=== PATIENT | male | born 1985 | race Caucasian/White ===

== ENCOUNTER 2021-12-05 13:47 | Emergency (ER) | payer OTHER ==
[2021-12-05] MEDS ORDERED: FAMOTIDINE 20 MG TAB PO STA (15:55)
[2021-12-05] MEDS ORDERED: hydrOXYzine HCL 25 MG TAB PO STA (15:55)
[2021-12-05] MEDS ORDERED: methylPREDNISolone SOD SUCCI 125 MG/2 ML VIAL IM ONE (15:55)
--- NOTE | 2021-12-05 16:01 | ED ---
Allergic Reaction HPI - General Chief complaint: Allergic Reaction Stated complaint: Allergic Reaction Time Seen by Provider: 12/05/21 15:43 Source: patient, RN notes reviewed Mode of arrival: ambulatory Limitations: no limitations - History of Present Illness Initial Comments: This is a 36-year-old male who presents to the emergency department with a rash. Patient states that he woke up with a rash all over his body. Describes this as being very itchy. This is similar to the rash he had in October. He was evaluated in the emergency department and treated with 5 days of prednisone and states that the rash improved when taking the prednisone, however he does not feel like it ever completely went away. He does note that he changes laundry detergents and bed sheets very frequently, and when he changes the bed sheets they do occasionally cause him to break out. Denies any chest pain or shortness of breath. Denies any new medications. Denies any fevers, chills, sore throat, cough, dyspnea, chest pain, palpitations, abdominal pain, nausea, vomiting, diarrhea, back pain, or headaches. MD Complaint: hives Exposure: unknown Symptoms: rash, itching Treatment Prior to Arrival: benadryl Previous Allergy History: prior ED visit(s) - Related Data Previous Rx's Medication Instructions Recorded predniSONE 50 mg PO DAILY #5 tab 10/09/21 Famotidine 40 mg PO DAILY #10 tab 12/05/21 hydrOXYzine HCL [Atarax] 25 mg PO QID PRN #20 tab 12/05/21 predniSONE 50 mg PO QAM #7 tablet 12/05/21 Allergies Allergy/AdvReac Type Severity Reaction Status Date / Time Penicillins Allergy Rash/Hives Verified 12/05/21 14:09 shellfish derived [Shrimp] Allergy Rash/Hives Verified 12/05/21 14:09 Review of Systems ROS Statement: Those systems with pertinent positive or pertinent negative responses have been documented in the HPI. ROS Other: All systems not noted in ROS Statement are negative. Past Medical History Past Medical History: Diabetes Mellitus, Hyperlipidemia, Hypertension History of Any Multi-Drug Resistant Organisms: None Reported Past Surgical History: No Surgical Hx Reported Past Psychological History: No Psychological Hx Reported Smoking Status: Never smoker Past Alcohol Use History: Rare Past Drug Use History: None Reported General Exam Limitations: no limitations General appearance: alert, in no apparent distress Head exam: Present: atraumatic, normocephalic, normal inspection Respiratory exam: Present: normal lung sounds bilaterally. Absent: respiratory distress, wheezes, rales, rhonchi, stridor Cardiovascular Exam: Present: regular rate, normal rhythm, normal heart sounds. Absent: systolic murmur, diastolic murmur, rubs, gallop, clicks Neurological exam: Present: alert, oriented X3, CN II-XII intact Psychiatric exam: Present: normal affect, normal mood Skin exam: Present: other (Diffuse urticarial reaction on the bilateral arms, legs, trunk and neck. Negative Nikolsky sign. Dermatographism is present.) Course Vital Signs 12/05/21 12/05/21 14:07 17:41 Temperature 97.6 F 98.0 F Pulse Rate 74 99 Respiratory 20 19 Rate Blood Pressure 140/90 141/88 O2 Sat by Pulse 97 99 Oximetry Medical Decision Making - Medical Decision Making This is a 36-year-old male who presents to the emergency department for urticaria. Patient given Solu-Medrol, Atarax, and famotidine. Upon reevaluation, the patient states that his itching had improved. He does have dermatographism present, suggestive of an allergic reaction. Patient will be discharged on a course of prednisone, Atarax, and Famotidine. Reminded him that prednisone can lead to an elevation in blood sugars. Advised to avoid heat, as that will likely worsen his symptoms. He is also advised to follow up with his primary care provider and discuss a referral to an plan examiner if this continues to be a problem. Return precautions reviewed in depth, the patient is instructed to return to the emergency department with any new, worsening, or concerning symptoms. Patient verbalized understanding. This case was discussed in detail with the attending ED physician. Presentation, findings, and treatment plan discussed in detail as well. Disposition Clinical Impression: Allergic reaction, Urticaria Disposition: HOME SELF-CARE Instructions (If sedation given, give patient instructions): Urticaria (ED) Additional Instructions: Return to the emergency department with any new, worsening, or concerning symptoms. Discuss an plan examiner referral with your primary care provider. Follow up with your primary care provider in 1-2 days. Prescriptions: hydrOXYzine HCL [Atarax] 25 mg PO QID PRN #20 tab PRN Reason: Itching Famotidine 40 mg PO DAILY #10 tab predniSONE 50 mg PO QAM #7 tablet Is patient prescribed a controlled substance at d/c from ED?: No Referrals: Min Mendez MD [Primary Care Provider] - 1-2 days
[2021-12-05 17:43] VITALS: BP 141/88; PULSE 99; RESP 19; TEMP 98
== END 2021-12-05 17:43 | disposition home or self-care (01) ==
LOC: EC 13:47
DX: T78.40XA Allergy, unspecified, initial encounter (principal); L50.0 Allergic urticaria; E11.9 Type 2 diabetes mellitus without complications; I10 Essential (primary) hypertension; Z88.0 Allergy status to penicillin; Z91.030 Bee allergy status
CPT/HCPCS: 99283; 96372; J2930